=== PATIENT | female | born 1985 | race Caucasian/White ===

== ENCOUNTER 2024-09-28 13:00 | Outpatient (RCR) | payer MEDICAID, SELFPAY | END 2024-10-19 23:59 | disposition home or self-care (01) | LOC: SCTC 13:00 | PROVIDERS: PCP Physician Assistant Medical; Referring Provider Physician Assistant Medical; Visit Provider Nurse Practitioner Family | DX: D50.9 Iron deficiency anemia, unspecified (principal); F10.10 Alcohol abuse, uncomplicated; Z71.41 Alcohol abuse counseling and surveillance of alcoholic | CPT/HCPCS: 99213; G0463 ==

== ENCOUNTER 2024-11-06 18:50 | Emergency (ER) | payer MEDICAID, SELFPAY ==
[2024-11-06 18:51] VITALS: BMI 41.9
--- NOTE | 2024-11-06 19:09 | PC.NURSE ---
PT did not answer when name was called in the lobby and was not found outside.
[2024-11-06 19:10] VITALS: BP 138/95; PULSE 106; RESP 22; TEMP 36.8; O2SAT 100
--- NOTE | 2024-11-06 19:10 | XR_ITS ---
Examination: CTA chest with intravenous contrast 2-D reconstructions 3-D reconstructions, vascular Date and time of exam: November 06, 2024 at 9:44 PM Indications: Onset chest pain shortness of breath today CTDI: vol (mGy) 23.2 DLP: (mGycm) 2463 Technique: Multiple axial sections of the thorax have been obtained. 3 mm slice thickness, from below the hemidiaphragms to above the apices of the lungs. Mediastinal and lung density settings have been obtained. 2-D sagittal and coronal reconstructions. 3-D angiographic renderings, 3-D volume renderings, 3D post processing, vascular maximum intensity projections obtained. Contrast administered is 100 cc Isovue-370. Low dose protocols were performed. One or more of the following dose reduction techniques were used; automated exposure control, adjustment of the mA and/or KV according to patient size, use of iterative reconstruction technique. Findings: No thoracic aortic aneurysm dilatation or dissection No pulmonary artery filling defects No paratracheal tracheobronchial or bronchopulmonary adenopathy No pneumonia or pulmonary edema No liver or splenic lesion Absent gallbladder No pancreatic or adrenal mass Kidneys partially visualized no stenosis Impression: Negative for pulmonary artery emboli No pneumonia, pulmonary edema or pleural disease
--- NOTE | 2024-11-06 19:10 | XR_ITS ---
Examination: CT abdomen with intravenous contrast CT pelvis with intravenous contrast 2-D coronal reconstructions 2-D sagittal reconstructions Date and time of exam:November 06, 2024 at 1930 8:00 PM Indications: Onset abdominal pain today. CTDI: vol (mGy) 23.0 DLP: (mGycm) 2463 Technique: Multiple axial sections of the abdomen and pelvis have been obtained. 64 slice high-resolution scanner used. 3 mm axial sections have been obtained, post intravenous injection 100 cc Isovue-370 2-D sagittal, coronal reconstructions obtained. Low dose protocols were performed. One or more of the following dose reduction techniques were used; automated exposure control, adjustment of the mA and/or KV according to patient size, use of iterative reconstruction technique. Findings: No focal liver or splenic lesion Absent gallbladder No pancreatic mass 25 mm fat-containing umbilical hernia No renal or ureteral calculi, no hydronephrosis No pericecal inflammatory change No bowel obstruction or diverticulitis No pelvic mass Urinary bladder intact Impression: No renal or ureteral calculi, no hydronephrosis No CT findings of appendicitis bowel obstruction or diverticulitis
--- NOTE | 2024-11-06 19:10 | XR_ITS ---
Examination: AP chest single view Technique one AP portable upright chest single view Exam date and time: November 06, 2024 1937 hrs. Indications: Shortness of breath today Findings: Mild enlargement cardiac contour Mild vascular congestion. No lobar pulmonary edema Impression: Mild vascular congestion No lobar or pulmonary edema
--- NOTE | 2024-11-06 19:10 | PD.EDSOB ---
ED SOB =RME/HPI General Chief Complaint: Shortness of Breath/Dyspnea Stated Complaint: SOB, NOSE AND MOUTH DRY Time Seen by Provider: 11/06/24 19:04 Arrival date/time: 11/06/24 18:50 RME / HPI RME / HPI Narrative: This section includes all my notes and documentations, including HPI, PE, and ED course. Sarath Kelley MD HPI: 39 y/o female with Hx of Seizures, Asthma, Bronchitis, Pneumonia, Gall Bladder Disease, Gastroesophageal Reflux Disease, Obesity, Kidney Stones,?and Arthritis BIB mother presents to ED c/o sore throat and fever, vomiting, and diarrhea x 2 days. Patient also reports feeling SOB and LLQ pain. Patient passed out in the lobby for a few seconds. She was supposed to receive iron supplementation last week, but was told to come to ED for flu-like symptoms instead. Denies any possibility of . No other complaints. ROS: All negative except as documented in HPI. Physical Exam: General: Alert and oriented. No acute distress when remaining still. Eyes: Conjunctivae and lids clear. ENT: No nasal congestion. Neck: Supple. Heart: RRR. Lungs: No respiratory distress. Good air movement. No rhonchi, wheezing, rales. Abdomen: Soft and nontender. Normal bowel sounds. No distension. No rebound or guarding. Back: No CVA tenderness. Skin: Warm and dry. Neuro: Alert and oriented X 3. I reviewed all diagnostic test results. My interpretation of the EKG is My interpretation of the chest x-ray is Mild vascular congestion, No lobar or pulmonary edema noted. My review of the CT report is Blood tests and urine tests At this point, diagnoses include Hyperventilation-induced syncope and Allergic rhinitis. Treatment here included Zofran, Lorazepam, Toradol, Xanax, and Methylprednisolone. Significant improvement Based on my best medical judgment, made decision no further evaluation or treatment indicated at this time. Patient understands and agrees to the discharge instructions customized and printed, see below. Discharge instructions from Dr. Kelley: 1. After extensive evaluation, there is no life-threatening condition.? Such as stroke or brain tumor or heart attack or pulmonary embolism (blood clots in your lungs) or pneumothorax (collapsed lung). You passed out from hyperventilating. Try to take very deep breaths when you are feeling anxious. 2. Your hemoglobin was 9.8, meaning your body is making red blood cells. It takes 3 months to make red blood cells. 3. Take Xanax as needed.? Whether this helps or not will be valuable information to your private doctors. Take [id number] medications for your allergies. 4. See a private doctor on 11/09/24 for recheck. Ask to review all test results and official radiology reports, to make sure you receive all necessary follow-ups and monitoring. To make sure there is no serious underlying heart condition, ask to help you get more tests for your heart that cannot be done here in the ER.? Such as Holter Monitor (cardiac monitoring at home from a day to even a month), heart stress test (on treadmill or with medication), echocardiogram (imaging of your heart structures), heart catherization (checking for blockages in your heart arteries), and a referral to see a Hydraulic Rubbish Comp[employer] Mechanic. If needed, ask for help with MRI imaging of the brain and referral to see neurologist. 5. Seek immediate medical care with worsening or with any concerns.?? Sarath Kelley MD Related Data Home Medications ?Medication ?Instructions ?Recorded ?Confirmed fluoxetine 20 mg capsule (Prozac) 20 mg PO QDAY 03/02/24 03/03/24 omeprazole 40 mg capsule,delayed 40 mg PO QDAY 03/02/24 03/02/24 release Previous Rx's ?Medication ?Instructions ?Recorded docusate sodium 100 mg capsule 100 mg PO BID #40 caps 03/03/24 (Colace) hydrocodone 5 mg-acetaminophen 325 1 tab PO Q6H PRN pain (scale score 03/03/24 mg tablet 7-10) #20 tabs ibuprofen 600 mg tablet 600 mg PO Q8H PRN pain (scale 03/03/24 score 4-6) #15 tabs hydrocodone 5 mg-acetaminophen 325 1 tab PO BID PRN pain #14 tabs 03/10/24 mg tablet polyethylene glycol 3350 17 4 g PO QDAY PRN constipation #510 03/10/24 gram/dose oral powder (Miralax) grams prednisone 50 mg tablet 50 mg PO QDAY #7 tabs 03/27/24 alprazolam 0.5 mg tablet (Xanax) 0.5 mg PO BID PRN anxiety #20 tabs 11/06/24 Allergies Allergy/AdvReac Type Severity Reaction Status Date / Time amoxicillin Allergy Severe RASH AND Verified 11/06/24 18:54 VOMITING erythromycin base Allergy Severe Rash Verified 11/06/24 18:54 ketorolac Allergy Severe Palpitation Verified 11/06/24 18:54 s Penicillins Allergy Severe Rash Verified 11/06/24 18:54 Review of Systems Review of Systems Systems Reviewed: All systems reviewed, normal except as documented Narrative Review of Systems: Refer to HPI above. Past Medical History Past Medical History NEUROLOGIC: Positive Neurological Disorders and Seizures RESPIRATORY: Positive Asthma, Bronchitis and Pneumonia GASTROINTESTINAL: Positive Gastrointestinal Disorders, Gall Bladder Disease, Gastroesophageal Reflux Disease and Obesity GENITOURINARY: Positive Genitourinary Disorders and Kidney Stones REPRODUCTIVE: Positive Previous Pregnancies MUSCULOSKELETAL: Positive Musculoskeletal Disorders, Arthritis and Fractures HEMATOLOGIC: Positive Blood Disorders and Anemia PSYCHO/SOCIAL: Positive Depression and Anxiety OTHER HISTORY: Positive Hospitalization (surgery, medical), Falls and Chicken Pox Family History FAMILY HISTORY: Positive Family Cardiac Disorders and Family Surgery Surgical History SURGICAL: Positive Open Reduction Internal Fixation (anni ankle ORIF), Tubal Ligation and Section ED Exam Narrative Physical exam: Refer to HPI above. Course Quality Measures none Orders Category Date Time Status Bedside COVID-19 Antigen Test NOW Care 11/06/24 19:09 Active Bedside Influenza A&B Antigen Test NOW Care 11/06/24 19:[address] Screening NOW Care 11/06/24 19:10 Active EKG (ED ONLY) *Do not use* NOW Care 11/06/24 19:04 Completed Saline [Insert IV] NOW Care 11/06/24 19:09 Active Straight [In and Out Catheter] X1 Care 11/06/24 19:[address] abdomen pelvis w con Stat Exams 11/06/24 19:[address] angio chest Stat Exams 11/06/24 19:[address] head/brain wo con Stat Exams 11/06/24 19:11 Completed EKG (ED Only) Stat Exams 11/06/24 19:04 Ordered XR chest 1V portable Stat Exams 11/06/24 19:10 Completed ABG [Arterial Blood Gas] Stat Lab 11/06/24 19:45 Completed Amylase Stat Lab 11/06/24 19:15 Completed BNP [B-Type Natriuretic Peptide] Stat Lab 11/06/24 19:15 Completed Bilirubin,Direct Stat Lab 11/06/24 19:15 Completed CBC Stat Lab 11/06/24 19:15 Completed CMP [Comprehensive Metabolic Panel] Stat Lab 11/06/24 19:15 Completed D-Dimer Stat Lab 11/06/24 19:15 Completed Free T4 (Free Thyroxine) Stat Lab 11/06/24 19:15 Completed HCG Qualitative,Urine Stat Lab 11/06/24 19:20 Completed HCG,Qualitative Serum Stat Lab 11/06/24 19:15 Completed Lipase Stat Lab 11/06/24 19:15 Completed Magnesium Stat Lab 11/06/24 19:15 Completed PT [Prothrombin Time with INR] Stat Lab 11/06/24 19:15 Completed PTT [Partial Thromboplastin Time] Stat Lab 11/06/24 19:15 Completed RSV [Respiratory Syncytial Virus Ag] Stat Lab 11/06/24 19:20 Completed Strep A Rapid Stat Lab 11/06/24 19:20 Completed TSH [Thyroid Stimulating Hormone] Stat Lab 11/06/24 19:15 Completed Troponin I Stat Lab 11/06/24 19:15 Completed UA, C/S IF [Urinalysis, C/S if Indicated] Stat Lab 11/06/24 19:20 Completed ALPRazoLAM [Xanax] Med 11/06/24 22:56 Discontinued 1 mg PO X1 ONE Ketorolac Inj [Toradol Inj] Med 11/06/24 19:47 Discontinued 30 mg IVP X1 ONE LORazepam [Ativan Inj] Med 11/06/24 19:09 Discontinued 0.75 mg IVP X1 ONE MethylPREDNISolone.* [SoluMEDROL Inj] Med 11/06/24 22:56 Discontinued 125 mg IM X1 ONE Ondansetron Inj [Zofran Inj] Med 11/06/24 19:09 Discontinued 4 mg IV X1 ONE Vital Signs Vital signs: Vital Signs Temperature 98.3 F 11/06/24 19:10 Pulse Rate 106 H 11/06/24 19:10 Respiratory Rate 22 H 11/06/24 19:10 Blood Pressure 138/95 H 11/06/24 19:10 Pulse Oximetry (%) 100 11/06/24 19:10 Oxygen Delivery Method Room Air 11/06/24 19:10 Shortness of Breath / Dyspnea MDM Narrative MDM Narrative:: Scribe Attestation: I, Addis Quintanilla, am scribing for and in the presence of Dr. Kelley. Provider Notation: Although this document has been carefully reviewed, there may still be some phonetic and other typographical errors. These errors are purely grammatical due to imperfections in the software program and should not be construed in any way to compromise the substance of the patient's medical care during this visit. 39 y/o female with Hx of Seizures, Asthma, Bronchitis, Pneumonia, Gall Bladder Disease, Gastroesophageal Reflux Disease, Obesity, Kidney Stones,?and Arthritis BIB mother presents to ED c/o sore throat and fever, vomiting, and diarrhea x 2 days. Patient also reports feeling SOB and LLQ pain. Patient passed out in the lobby for a few seconds. Patient data External records reviewed:: [facility] previous records (Prior ED visit records reviewed from 03/27/24. Patient was seen for Shortness of breath.) Clinical information provided by:: patient and parent (Mother) Social determinants that could affect healthcare access:: none Patient has the following chronic illnesses:: Seizures, Asthma, Bronchitis, Pneumonia, Gall Bladder Disease, Gastroesophageal Reflux Disease and ObesityKidney Stones,?and Arthritis How is presenting disease/condition affected by chronic disease/condition?: exacerbated by Evaluation data The following diagnostics were reviewed and interpreted by me:: lab results, radiology exam(s) (Chest x-ray shows: Mild vascular congestion, No lobar or pulmonary edema noted.) and EKG tracing(s) (My interpretation of the EKG: Sinus tachycardia (107 bpm) with no ST-T changes. Sarath Kelley MD) Lab and/or radiology exams considered but not ordered:: None Interpretation Summary: Hyperventilation-induced syncope, Allergic rhinitis Medications / Prescriptions Medications or Prescriptions considered but not ordered:: None Medication administrations:: Medication Administration History Discontinued Medications Alprazolam (Alprazolam 0.25 Mg Tablet) 1 mg PO X1 ONE Stop: 11/06/24 22:57 Ketorolac Tromethamine (Ketorolac Inj 30 Mg/Ml Vial) 30 mg IVP X1 ONE Stop: 11/06/24 19:48 Last Admin: 11/06/24 20:18 Dose: Not Given Documented By: EE Non-Admin Reason: Allergy Lorazepam (Lorazepam 2 Mg/Ml Vial) 0.75 mg IVP X1 ONE Stop: 11/06/24 19:10 Last Admin: 11/06/24 19:36 Dose: 0.75 mg Documented By: EF Methylprednisolone Sodium Succinate (Methylprednisolone Sod Succ 62.5 Mg/Ml 2ml Vial) 125 mg IM X1 ONE Stop: 11/06/24 22:57 Ondansetron HCl (Ondansetron Inj 2 Mg/Ml Inj 2 Ml) 4 mg IV X1 ONE; Protocol Stop: 11/06/24 19:10 Last Admin: 11/06/24 19:36 Dose: 4 mg Documented By: EF Zofran, Lorazepam, Toradol, Xanax, Methylprednisolone Consultations Consultation(s) initiated? (list below): No Diagnosis Shortness of Breath Differential Diagnosis: asthma with exacerbation and other (Anxiety vs Hypothyroidism vs Generalized abdominal pain) Most likely diagnosis given after review of the tests above:: Hyperventilation-induced syncope, Allergic rhinitis Admission Indicated Admission indicated?: not indicated Explain why admission is indicated or not indicated:: With significant improvement, there was no indication for admission. Admission Request Was there a request for admission?: No Disposition Plan Disposition Plan: Discharge Discharge Attestation Discharge Attestation: The patient and all family members were given an opportunity to ask questions and understood the discharge instructions. Discharge instructions specifically effects, indications for sooner follow up or return to the emergency department, and the expected course of current diagnosis. Patient condition: Stable Discharge Plan Plan Patient Disposition: HOME (Self Care) Prescriptions/Referrals Prescriptions/Med Rec: New alprazolam [Xanax] 0.5 mg tablet 0.5 mg PO BID PRN (Reason: anxiety) Qty: 20 0RF No Action omeprazole 40 mg Capsule,Delayed Release(Dr/Ec) 40 mg PO QDAY fluoxetine [Prozac] 20 mg Capsule 20 mg PO QDAY docusate sodium [Colace] 100 mg capsule 100 mg PO BID Qty: 40 0RF hydrocodone-acetaminophen 5-325 mg tablet 1 tab PO Q6H MDD 4 PRN (Reason: pain (scale score 7-10)) Qty: 20 0RF ibuprofen 600 mg tablet 600 mg PO Q8H PRN (Reason: pain (scale score 4-6)) Qty: 15 0RF hydrocodone-acetaminophen 5-325 mg tablet 1 tab PO BID MDD qid PRN (Reason: pain) Qty: 14 0RF polyethylene glycol 3350 [Miralax] 17 gram/dose powder 4 g PO QDAY MDD 4g PRN (Reason: constipation) Qty: 510 0RF prednisone 50 mg tablet 50 mg PO QDAY Qty: 7 0RF Referrals: No Primary/Family,Physician [Primary Care Provider] - In 1 week Problem List Clinical Impression: Hyperventilation-induced syncope, Allergic rhinitis Patient/Caregiver Discharge Instructions Discharge Activity: activity as tolerated Education Materials: ED Allergic Rhinitis, ED Fainting, Uncertain Cause Additional Instructions: Discharge instructions from Dr. Kelley: 1. After extensive evaluation, there is no life-threatening condition.? Such as stroke or brain tumor or heart attack or pulmonary embolism (blood clots in your lungs) or pneumothorax (collapsed lung). You passed out from hyperventilating. Try to take very deep breaths when you are feeling anxious. 2. Your hemoglobin was 9.8, meaning your body is making red blood cells. It takes 3 months to make red blood cells. 3. Take Xanax as needed.? Whether this helps or not will be valuable information to your private doctors. Take [id number] medications for your allergies. 4. See a private doctor on 11/09/24 for recheck. Ask to review all test results and official radiology reports, to make sure you receive all necessary follow-ups and monitoring. To make sure there is no serious underlying heart condition, ask to help you get more tests for your heart that cannot be done here in the ER.? Such as Holter Monitor (cardiac monitoring at home from a day to even a month), heart stress test (on treadmill or with medication), echocardiogram (imaging of your heart structures), heart catherization (checking for blockages in your heart arteries), and a referral to see a Hydraulic Rubbish Compactor Mechanic. If needed, ask for help with MRI imaging of the brain and referral to see neurologist. 5. Seek immediate medical care with worsening or with any concerns.?? Print Language: American Stand Alone Forms: Janet Award Info., Patient Portal Info Letter
--- NOTE | 2024-11-06 19:11 | XR_ITS ---
Examination: CT brain head without contrast. 2-D sagittal coronal reconstructions Date and time of exam:November 06, 2024 2136 hrs. Indications: Syncopal episode today CTDI: vol (mGy):56.9 DLP: (mGycm):1383 Technique: Multiple CT axial sections of the brain have been obtained, 5 mm slice thickness. Contrast has not been administered. 2-D sagittal, coronal reconstructions have been obtained Low dose protocols were performed. One or more of the following dose reduction techniques were used; automated exposure control, adjustment of the mA and/or KV according to patient size, use of iterative reconstruction technique. Findings: No significant ventricular enlargement. Intra-axial or extra-axial hemorrhage density is not seen. No mass effect or midline shift Basal cisterns are not remarkable. Fourth ventricle is midline. Cranial vault intact. Impression: Negative for acute hemorrhage, mass effect or midline shift Advise clinical correlation follow-up accordingly
--- NOTE | 2024-11-06 19:11 | PC.NURSE ---
Pt was found. Was taken back into room [address] Kelley.
[2024-11-06 19:34] LABS: Collection Type, Urine Clean Catch; Squamous Epithelial Cell,Urine 0 /hpf (0-5)
[2024-11-06] MEDS: ONDANSETRON INJ 2 MG/ML INJ 2 ML 4 MG IV (19:36)
[2024-11-06] MEDS: LORazepam 2 MG/ML VIAL 0.75 MG IVP (19:36)
[2024-11-06 19:38] LABS: Basophils # (Auto) 0.1 Thou/mm3 (0.0-0.2); Basophils % (Auto) 1 % (0-2.5); Eosinophils # (Auto) 0.2 Thou/mm3 (0.0-0.5); Eosinophils % (Auto) 2 % (0-10); Hematocrit 33.7 % (36.0-46.0); Hemoglobin 9.8 g/dL (12.0-16.0); Immature Granulocytes % (Auto) 0 % (0-0); Immature Granulocytes Auto 0.05 Thou/mm3 (0.00-0.00); Lymphocytes # (Auto) 2.5 Thou/mm3 (1.0-4.8); Lymphocytes % (Auto) 19 % (10-50); Mean Corpuscular HGB Conc 29.1 g/dl (31.0-37.0); Mean Corpuscular Hemoglobin 21.5 pg (25.0-35.0); Mean Corpuscular Volume 74 fL (80-100); Monocytes # (Auto) 0.5 Thou/mm3 (0.0-0.8); Monocytes % (Auto) 4 % (0-12); Neutrophils # (Auto) 9.7 Thou/mm3 (1.8-7.7); Neutrophils % (Auto) 75 % (37-80); Nucleated Red Blood Cell % 0 /100 WBC (0); Platelet Count 455 Thou/mm3 (140-440); RDW Standard Deviation 52.1 fL (36.4-46.3); Red Blood Count 4.55 Miln/mm3 (4.00-5.20)
[2024-11-06 19:39] LABS: Bilirubin,Urine Negative (Negative); Blood,Urine Negative (Negative); Clarity,Urine Clear (Clear/Hazy); Color,Urine Colorless (Lt Yel-Yel); Culture Indicated,Urine Not Indicated; Glucose, Urine Negative (Negative); Ketones,Urine Negative (Negative); Leukocyte Esterase,Urine Negative (Negative); Nitrite,Urine Negative (Negative); PH,Urine 6.5 (5.0-7.0); Protein,Urine Negative (Neg - Trace); RBC,Urine 1 /hpf (0-3); Specific Gravity,Urine 1.004 (1.001-1.035); Urobilinogen,Urine Negative mg/dL (0.0-1.0); WBC,Urine < 1 /hpf (0-5)
[2024-11-06 19:52] LABS: Base Excess -3 (-3-3); HCO3 22 mEq/L (20-26); Inspired Oxygen, FIO2 97 %; O2 Saturation 95 % (91-98); PCO2 34 mmHg (32.0-48.0); PO2 74 mmHg (83-108); pH, Arterial 7.42 (7.35-7.45)
[2024-11-06 19:54] LABS: Allen Test Performed/OK; Puncture Site Right Radial
[2024-11-06 19:55] LABS: HCG,Qualitative Serum Negative
[2024-11-06 20:00] LABS: D-Dimer < 250 ng/mL (<600); INR 0.9 (0.9-1.3); Partial Thromboplastin Time 25.8 Seconds (22.0-36.0); Prothrombin Time 10.3 Seconds (9.0-12.2)
[2024-11-06 20:03] LABS: HCG Qualitative,Urine Negative
[2024-11-06 20:03] LABS: B-Type Natriuretic Peptide 34 pg/mL (0-100)
[2024-11-06 20:07] LABS: Respiratory Syncytial Virus Ag Negative (Negative); Strep A Rapid Negative (Negative)
[2024-11-06 20:24] LABS: Alanine Aminotransferase 25 U/L (10-49); Albumin, Serum 4.4 gm/dL (3.5-5.0); Albumin/Globulin Ratio 1.5 (1.2-2.2); Alkaline Phosphatase 103 U/L (46-116); Anion Gap 11 (7-16); Aspartate Amino Transferase 32 U/L (0-34); BUN/Creatinine Ratio 7 Ratio (12-20); Bilirubin,Direct 0.1 mg/dL (0.0-0.3); Bilirubin,Total 0.5 mg/dL (0.3-1.2); Blood Urea Nitrogen 5 mg/dL (9-23); Calcium 9.4 mg/dL (8.3-10.6); Calcium (Corrected) 9.4 mg/dL (8.5-10.1); Carbon Dioxide 24.6 mMol/L (20.0-31.0); Chloride 105 mMol/L (98-107); Creatinine (Component) 0.7 mg/dL (0.6-1.3); Estimated Creatinine Clearance 143.8 mL/min (>60); Free T4 (Free Thyroxine) 1.12 ng/dL (0.89-1.76); Glucose 99 mg/dL (74-106); Lipase 37 U/L (12-53); Magnesium 2.3 mg/dL (1.6-2.6); Osmolality,Calculated 278 (275-295); Potassium 3.5 mMol/L (3.4-5.1); Sodium 141 mMol/L (136-145); Thyroid Stimulating Hormone 1.88 uIU/mL (0.55-4.78); Total Protein 7.4 gm/dL (5.7-8.2); Troponin I < 0.002 ng/mL (0.0-0.045); eGFR > 60 See Note
[2024-11-06 20:36] LABS: Amylase 86 U/L (30-118)
[2024-11-06] MEDS: MethylPREDNISolone SOD SUCC 62.5 MG/ML 2ML VIAL 125 MG IM (23:09)
[2024-11-06] MEDS: ALPRazoLAM 0.25 MG TABLET 1 MG PO (23:10)
[2024-11-06 23:14] VITALS: BP 132/89; PULSE 97; RESP 18; TEMP 36.7; O2SAT 98
== END 2024-11-06 23:16 | disposition home or self-care (01) ==
PROVIDERS: Emergency Provider Emergency Medicine
DX: R55 Syncope and collapse (principal); R06.4 Hyperventilation; J45.909 Unspecified asthma, uncomplicated; K21.9 Gastro-esophageal reflux disease without esophagitis; M19.90 Unspecified osteoarthritis, unspecified site; R10.32 Left lower quadrant pain
CPT/HCPCS: 36415; 36600; 70450; 71045; 71275; 74177; 80053; 81001; 81025; 82150; 82248; 82803; 83690; 83735; 83880; 84439; 84443; 84484; 84703; 85025; 85379; 85610; 85730; 87400; 87634; 87651; 87811; 93005; 96372; 96374; 96375; 99285; A4649; J2060; J2405; J2919; Q9967; A9270

== ENCOUNTER 2024-11-18 13:56 | Outpatient (RCR) | payer MEDICAID, SELFPAY ==
[2024-10-27 09:02] LABS: Basophils % (Auto) 1 % (0-2.5); Eosinophils # (Auto) 0.1 Thou/mm3 (0.0-0.5); Eosinophils % (Auto) 2 % (0-10); Hematocrit 26.4 % (36.0-46.0); Immature Granulocytes % (Auto) 1 % (0-0); Immature Granulocytes Auto 0.04 Thou/mm3 (0.00-0.00); Lymphocytes # (Auto) 1.6 Thou/mm3 (1.0-4.8); Lymphocytes % (Auto) 19 % (10-50); Mean Corpuscular Hemoglobin 20.6 pg (25.0-35.0); Mean Corpuscular Volume 73 fL (80-100); Monocytes # (Auto) 0.3 Thou/mm3 (0.0-0.8); Monocytes % (Auto) 4 % (0-12); Neutrophils # (Auto) 6.1 Thou/mm3 (1.8-7.7); Neutrophils % (Auto) 74 % (37-80); Nucleated Red Blood Cell % 0 /100 WBC (0); Platelet Count 105 Thou/mm3 (140-440); White Blood Count 8.3 Thou/mm3 (3.6-11.0)
[2024-10-27 09:08] LABS: Hemoglobin 7.4 g/dL (12.0-16.0)
[2024-11-11 15:05] LABS: Basophils # (Auto) 0.1 Thou/mm3 (0.0-0.2); Basophils % (Auto) 1 % (0-2.5); Eosinophils # (Auto) 0.2 Thou/mm3 (0.0-0.5); Eosinophils % (Auto) 2 % (0-10); Hematocrit 31.3 % (36.0-46.0); Hemoglobin 9.1 g/dL (12.0-16.0); Immature Granulocytes % (Auto) 1 % (0-0); Immature Granulocytes Auto 0.08 Thou/mm3 (0.00-0.00); Lymphocytes # (Auto) 1.5 Thou/mm3 (1.0-4.8); Lymphocytes % (Auto) 13 % (10-50); Mean Corpuscular HGB Conc 29.1 g/dl (31.0-37.0); Mean Corpuscular Hemoglobin 22.1 pg (25.0-35.0); Mean Corpuscular Volume 76 fL (80-100); Monocytes # (Auto) 0.6 Thou/mm3 (0.0-0.8); Monocytes % (Auto) 5 % (0-12); Neutrophils % (Auto) 79 % (37-80); Nucleated Red Blood Cell # 0.02 Thou/mm3 (0.00-0.00); Nucleated Red Blood Cell % 0 /100 WBC (0); Platelet Count 336 Thou/mm3 (140-440); RDW Standard Deviation 55.8 fL (36.4-46.3); Red Blood Count 4.12 Miln/mm3 (4.00-5.20); White Blood Count 11.4 Thou/mm3 (3.6-11.0)
== END 2024-11-18 23:59 | disposition home or self-care (01) ==
LOC: SCTC 13:56
PROVIDERS: Internal Medicine Hematology & Oncology; PCP Physician Assistant Medical; Referring Provider Physician Assistant Medical; Visit Provider Nurse Practitioner Family
DX: D50.9 Iron deficiency anemia, unspecified (principal); N92.0 Excessive and frequent menstruation with regular cycle; F10.10 Alcohol abuse, uncomplicated
CPT/HCPCS: 36415; 36430; 85025; 86850; 86900; 86901; 86923; 96365; 96374; 96375; 99212; J1200; J1756; J2919; J3490; J7050; P9016; A9270; G0463

== ENCOUNTER 2024-12-10 14:01 | Outpatient (RCR) | payer MEDICAID, SELFPAY ==
[2024-12-03 14:54] LABS: Basophils # (Auto) 0.1 Thou/mm3 (0.0-0.2); Basophils % (Auto) 1 % (0-2.5); Eosinophils # (Auto) 0.1 Thou/mm3 (0.0-0.5); Eosinophils % (Auto) 1 % (0-10); Hematocrit 31.4 % (36.0-46.0); Hemoglobin 9.6 g/dL (12.0-16.0); Immature Granulocytes % (Auto) 0 % (0-0); Immature Granulocytes Auto 0.02 Thou/mm3 (0.00-0.00); Lymphocytes # (Auto) 1.5 Thou/mm3 (1.0-4.8); Lymphocytes % (Auto) 16 % (10-50); Mean Corpuscular HGB Conc 30.6 g/dl (31.0-37.0); Mean Corpuscular Hemoglobin 24.6 pg (25.0-35.0); Mean Corpuscular Volume 81 fL (80-100); Monocytes # (Auto) 0.5 Thou/mm3 (0.0-0.8); Monocytes % (Auto) 5 % (0-12); Neutrophils # (Auto) 7.2 Thou/mm3 (1.8-7.7); Neutrophils % (Auto) 77 % (37-80); Nucleated Red Blood Cell % 0 /100 WBC (0); Platelet Count 328 Thou/mm3 (140-440); RDW Standard Deviation 71.7 fL (36.4-46.3); White Blood Count 9.3 Thou/mm3 (3.6-11.0)
== END 2024-12-19 23:59 | disposition home or self-care (01) ==
LOC: SCTC 14:01
PROVIDERS: PCP Family Medicine; Referring Provider Nurse Practitioner Family; Visit Provider Nurse Practitioner Family
DX: D50.9 Iron deficiency anemia, unspecified (principal); N92.0 Excessive and frequent menstruation with regular cycle; F10.10 Alcohol abuse, uncomplicated
CPT/HCPCS: 36415; 85025; 96365; 96375; A4216; J1200; J1756; J2919; J3490; J7040; J7050; A9270

== ENCOUNTER 2025-01-12 13:59 | Outpatient (RCR) | payer MEDICAID, SELFPAY ==
[2024-12-31 15:42] LABS: Basophils % (Auto) 1 % (0-2.5); Eosinophils # (Auto) 0.2 Thou/mm3 (0.0-0.5); Eosinophils % (Auto) 2 % (0-10); Immature Granulocytes % (Auto) 0 % (0-0); Immature Granulocytes Auto 0.03 Thou/mm3 (0.00-0.00); Lymphocytes # (Auto) 1.2 Thou/mm3 (1.0-4.8); Lymphocytes % (Auto) 17 % (10-50); Mean Corpuscular HGB Conc 32.3 g/dl (31.0-37.0); Mean Corpuscular Volume 84 fL (80-100); Monocytes # (Auto) 0.3 Thou/mm3 (0.0-0.8); Monocytes % (Auto) 4 % (0-12); Neutrophils # (Auto) 5.4 Thou/mm3 (1.8-7.7); Neutrophils % (Auto) 76 % (37-80); Nucleated Red Blood Cell % 0 /100 WBC (0); Platelet Count 363 Thou/mm3 (140-440); Red Blood Count 3.71 Miln/mm3 (4.00-5.20); White Blood Count 7.1 Thou/mm3 (3.6-11.0)
[2024-12-31 16:09] LABS: Ferritin 15 ng/mL (7.3-270.7); Iron 32 mcg/dL (50-170); Percent Iron Saturation 8 % (20-55); Total Iron Binding Capacity 367 mcg/dL (250-425); Unsaturated Iron Binding 335 (225-295)
[2024-12-31 16:33] LABS: Alanine Aminotransferase 32 U/L (10-49); Albumin, Serum 4.2 gm/dL (3.5-5.0); Albumin/Globulin Ratio 1.8 (1.2-2.2); Alkaline Phosphatase 73 U/L (46-116); Anion Gap 8 (7-16); Aspartate Amino Transferase 41 U/L (0-34); BUN/Creatinine Ratio 7 Ratio (12-20); Bilirubin,Total 0.5 mg/dL (0.3-1.2); Blood Urea Nitrogen 5 mg/dL (9-23); Calcium 9.2 mg/dL (8.3-10.6); Calcium (Corrected) 9.2 mg/dL (8.5-10.1); Carbon Dioxide 27.8 mMol/L (20.0-31.0); Chloride 106 mMol/L (98-107); Creatinine (Component) 0.7 mg/dL (0.6-1.3); Globulin 2.3 gm/dL (2.3-3.5); Glucose 83 mg/dL (74-106); Osmolality,Calculated 279 (275-295); Potassium 3.5 mMol/L (3.4-5.1); Sodium 142 mMol/L (136-145); Total Protein 6.5 gm/dL (5.7-8.2); eGFR > 60 See Note
[2024-12-31 16:41] LABS: Folate > 24.00 ng/mL (>5.38); Vitamin B12 1053 pg/mL (211-911)
[2025-01-12 16:13] LABS: Basophils # (Auto) 0.1 Thou/mm3 (0.0-0.2); Basophils % (Auto) 1 % (0-2.5); Eosinophils # (Auto) 0.2 Thou/mm3 (0.0-0.5); Eosinophils % (Auto) 2 % (0-10); Hematocrit 35.9 % (36.0-46.0); Hemoglobin 11.5 g/dL (12.0-16.0); Immature Granulocytes % (Auto) 1 % (0-0); Immature Granulocytes Auto 0.05 Thou/mm3 (0.00-0.00); Lymphocytes # (Auto) 1.5 Thou/mm3 (1.0-4.8); Lymphocytes % (Auto) 14 % (10-50); Mean Corpuscular Hemoglobin 27.4 pg (25.0-35.0); Mean Corpuscular Volume 86 fL (80-100); Monocytes # (Auto) 0.4 Thou/mm3 (0.0-0.8); Monocytes % (Auto) 4 % (0-12); Neutrophils # (Auto) 8.5 Thou/mm3 (1.8-7.7); Neutrophils % (Auto) 80 % (37-80); Nucleated Red Blood Cell % 0 /100 WBC (0); Platelet Count 399 Thou/mm3 (140-440); RDW Standard Deviation 54.5 fL (36.4-46.3); White Blood Count 10.6 Thou/mm3 (3.6-11.0)
[2025-01-12 16:46] LABS: Alanine Aminotransferase 25 U/L (10-49); Albumin, Serum 4.5 gm/dL (3.5-5.0); Albumin/Globulin Ratio 1.8 (1.2-2.2); Alkaline Phosphatase 69 U/L (46-116); Anion Gap 11 (7-16); Aspartate Amino Transferase 30 U/L (0-34); BUN/Creatinine Ratio 9 Ratio (12-20); Bilirubin,Total 0.2 mg/dL (0.3-1.2); Blood Urea Nitrogen 7 mg/dL (9-23); Calcium 9.4 mg/dL (8.3-10.6); Calcium (Corrected) 9.4 mg/dL (8.5-10.1); Carbon Dioxide 26.3 mMol/L (20.0-31.0); Chloride 104 mMol/L (98-107); Creatinine (Component) 0.8 mg/dL (0.6-1.3); Globulin 2.5 gm/dL (2.3-3.5); Glucose 95 mg/dL (74-106); Osmolality,Calculated 279 (275-295); Potassium 3.6 mMol/L (3.4-5.1); Sodium 141 mMol/L (136-145); eGFR > 60 See Note
[2025-01-12 17:21] LABS: Hepatitis A Antibody IgM Non Reactive (Non React); Hepatitis B Core Antibody IgM Non Reactive (Non React); Hepatitis B Surface Antigen Non Reactive (Non React); Hepatitis C Antibody Non Reactive (Non React)
== END 2025-01-18 23:59 | disposition home or self-care (01) ==
LOC: SCTC 13:59
PROVIDERS: PCP Family Medicine; Referring Provider Family Medicine; Visit Provider Nurse Practitioner Family
DX: D50.9 Iron deficiency anemia, unspecified (principal); N92.0 Excessive and frequent menstruation with regular cycle; F10.10 Alcohol abuse, uncomplicated; F12.10 Cannabis abuse, uncomplicated
CPT/HCPCS: 36415; 80053; 80074; 82607; 82728; 82746; 83540; 83550; 85025; 96365; 96375; J1200; J1756; J2919; J3490; J7040; J7050; A9270

== ENCOUNTER 2025-02-11 14:00 | Outpatient (RCR) | payer MEDICAID, SELFPAY | END 2025-02-18 23:59 | disposition home or self-care (01) | LOC: SCTC 14:00 | PROVIDERS: PCP Family Medicine; Referring Provider Family Medicine; Visit Provider Nurse Practitioner Family | DX: D50.9 Iron deficiency anemia, unspecified (principal); N92.0 Excessive and frequent menstruation with regular cycle; F10.10 Alcohol abuse, uncomplicated; R19.5 Other fecal abnormalities | CPT/HCPCS: 96365; 96375; A4216; J1200; J1756; J2919; J3490; J7040; J7050; A9270 ==

== ENCOUNTER 2025-05-09 14:39 | Emergency (ER) | payer MEDICAID, SELFPAY ==
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
--- NOTE | 2025-05-09 15:02 | PC.NURSE ---
pd in room with pt
[2025-05-09 15:03] VITALS: BP 141/86; PULSE 122; RESP 16; TEMP 36.9; O2SAT 96
[2025-05-09 15:07] VITALS: BMI 42.2
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
--- NOTE | 2025-05-09 15:22 | XR_ITS ---
Examination: CT brain head without contrast. 2-D sagittal coronal reconstructions Date and time of exam: May 09, 2025, 1530 hours INDICATIONS: Ground-level fall today with injury to the head, head pain and dizziness CTDI: vol (mGy): 68 DLP: (mGycm): 1398 Technique: Multiple CT axial sections of the brain have been obtained, 5 mm slice thickness. Contrast has not been administered. 2-D sagittal, coronal reconstructions have been obtained Low dose protocols were performed. One or more of the following dose reduction techniques were used; automated exposure control, adjustment of the mA and/or KV according to patient size, use of iterative reconstruction technique. Findings: No significant ventricular enlargement. Intra-axial or extra-axial hemorrhage density is not seen. No mass effect or midline shift Basal cisterns are not remarkable. Fourth ventricle is midline. Cranial vault intact. Impression: Negative for acute hemorrhage, mass effect or midline shift Chronic bilateral mastoiditis Acute bilateral mastoiditis Left otitis externa
[2025-05-09 16:14] LABS: HCG,Qualitative Serum Negative
--- NOTE | 2025-05-09 16:22 | PC.NURSE ---
SCIENTIFIC INVESTIGATOR HERE TO TALK WITH PT
[2025-05-09 17:00] VITALS: BP 128/78; PULSE 86; RESP 16; TEMP 37; O2SAT 100
[2025-05-09] MEDS: LIDOCAINE HCL 1% 20 ML VIAL 10 ML INFL (17:01)
[2025-05-09] MEDS: HYDROcodone/APAP 5/325 TABLET 1 TAB PO (17:01)
== END 2025-05-09 17:52 | disposition home or self-care (01) ==
PROVIDERS: Emergency Provider Emergency Medicine; PCP Family Medicine
DX: S31.119A Laceration without foreign body of abdominal wall, unspecified quadrant without penetration into peritoneal cavity, initial encounter (principal); F41.9 Anxiety disorder, unspecified; H60.92 Unspecified otitis externa, left ear; H70.003 Acute mastoiditis without complications, bilateral; H70.13 Chronic mastoiditis, bilateral; S00.93XA Contusion of unspecified part of head, initial encounter; W18.30XA Fall on same level, unspecified, initial encounter
CPT/HCPCS: 12001; 36415; 70450; 74177; 84703; 99283; A4649; J3490; Q9967; A9270

== ENCOUNTER 2025-06-15 11:18 | Emergency (ER) | payer MEDICAID, SELFPAY ==
--- NOTE | 2025-06-15 12:09 | EDNOTE_ITS ---
ED Ear RME/HPI General Chief complaint: Ear Stated complaint: LEFT EAR INFECTION Time Seen by Provider: 06/15/25 11:38 Source: patient Arrival date/time: 06/15/25 11:18 40-year-old female with no known medical history presents to the emergency room with a chief complaint of left ear tenderness and difficulty hearing x 1 week. Mode of arrival: ambulatory Limitations: no limitations Related Data Home Medications ?Medication ?Instructions ?Recorded ?Confirmed fluoxetine 20 mg capsule (Prozac) 20 mg PO QDAY 03/03/24 omeprazole 40 mg capsule,delayed 40 mg PO QDAY 4 03/02/24 release Previous Rx's ?Medication ?Instructions ?Recorded docusate sodium 100 mg capsule 100 mg PO BID #40 caps 03/03/24 (Colace) hydrocodone 5 mg-acetaminophen 325 1 tab PO Q6H PRN pa in (scale score 03/03/24 mg tablet 7-10) #20 tabs ibuprofen 600 mg tablet 600 mg PO Q8H PRN pain (scal e 03/03/24 score 4-6) #15 tabs hydrocodone 5 mg-acetaminophen 325 1 tab PO BID PRN pa in #14 tabs 03/10/24 mg tablet polyethylene glycol 3350 17 4 g PO QDAY PRN constipati on #510 03/10/24 gram/dose oral powder (Miralax) grams prednisone 50 mg tablet 50 mg PO QDAY #7 tabs alprazolam 0.5 mg tablet (Xanax) 0.5 mg PO BID PRN anx iety #20 tabs 11/06/24 amoxicillin 875 mg-potassium 1 tab PO BID 7 days #14 t abs 06/15/25 clavulanate 125 mg tablet Allergies Allergy/AdvReac Type Severity Reaction Status Date / Time erythromycin base Allergy Severe Rash Verified 05/09/25 14:42 ketorolac Allergy Severe Palpitation Verified 05/09/25 14:42 s Penicillins Allergy Severe Rash Verified 05/09/25 14:42 Review of Systems Review of Systems Systems Reviewed: All systems reviewed, normal except as documented Constitutional Constitutional: Reports system reviewed and no additional complaints, except as documented, Denies fatigue, Denies fever(s), Denies headache(s) and Denies weakness Eyes Eyes: Reports system reviewed and no additional complaints, except as documented, Denies blurry vision and Denies change in vision ENT Ears, Nose, Mouth, and Throat: Reports system reviewed and no additional complaints, except as documented, Reports ear discharge, Reports otalgia, Denies headache(s), Denies nasal congestion, Denies throat swelling and Denies vertigo Cardiovascular Cardiovascular: Reports system reviewed and no additional complaints, except as documented, Denies chest pain, Denies dyspnea and Denies dyspnea on exertion Respiratory Respiratory: Reports system reviewed and no additional complaints, except as documented, Denies chest congestion, Denies cough, Denies dyspnea, Denies dyspnea on exertion and Denies wheezing Gastrointestinal Gastrointestinal: Reports system reviewed and no additional complaints, except as documented, Denies abdominal pain, Denies cramping, Denies nausea and Denies vomiting Genitourinary Genitourinary: Reports system reviewed and no additional complaints, except as documented Musculoskeletal Musculoskeletal: Reports system reviewed and no additional complaints, except as documented and Denies back pain Integumentary/Breasts Skin/Breast: Reports system reviewed and no additional complaints, except as documented and Denies wounds Neurologic Neurologic: Reports system reviewed and no additional complaints, except as documented, Denies confusion, Denies headache(s), Denies lack of coordination, Denies vertigo and Denies weakness Psychiatric Psychiatric: Reports system reviewed and no additional complaints, except as documented, Denies anxiety, Denies confusion, Denies depression, Denies paranoia, Denies suicidal ideation and Denies tactile hallucinations Endocrine Endocrine: Reports system reviewed and no additional complaints, except as documented and Denies fatigue Hematologic/Lymphatic Hematologic/Lymphatic: Reports system reviewed and no additional complaints, except as documented and Denies lymphadenopathy Allergic/Immunologic Allergic/Immunologic: Reports system reviewed and no additional complaints, except as documented, Denies throat swelling, Denies urticaria and Denies wheezing Past Medical History Past Medical History NEUROLOGIC: Positive Neurological Disorders and Seizures CARDIAC: Negative Cardiac Disorders or Congestive Heart Failure RESPIRATORY: Positive Bronchitis and Pneumonia; Negative Chronic Obstructive Pulmonary Disease (COPD) or Asthma GASTROINTESTINAL: Positive Gastrointestinal Disorders, Gall Bladder Disease, Gastroesophageal Reflux Disease and Obesity GENITOURINARY: Positive Genitourinary Disorders and Kidney Stones; Negative Renal Disease REPRODUCTIVE: Positive Previous Pregnancies MUSCULOSKELETAL: Positive Musculoskeletal Disorders, Arthritis and Fractures ENDOCRINE: Negative Endocrine Disorders, Diabetes Mellitus Type 1 or Diabetes Mellitus Type 2 HEMATOLOGIC: Positive Blood Disorders and Anemia; Negative Sickle Cell Disease PSYCHO/SOCIAL: Positive Depression and Anxiety OTHER HISTORY: Positive Hospitalization, Falls and Chicken Pox; Negative Autoimmune Disease, Shingles, Blood Transfusions, Blood Transfusion Reaction, Anesthesia Reactions or Cancer Family History FAMILY HISTORY: Positive Family Cardiac Disorders and Family Surgery; Negative Family Psychiatric Problems, Family Respiratory Disorders, Family Gastrointestinal Problems, Family Cancer or Family Anesthesia Reaction Surgical History SURGICAL: Positive Open Reduction Internal Fixation, Tubal Ligation and Section; Negative Hysterectomy Social History SMOKING STATUS: Former smoker SECOND HAND EXPOSURE: No (occassional smoking) SUBSTANCE USE: marijuana and opiates ED Exam General Limitations: Present no limitations General appearance: Present alert and in no apparent distress Head Head exam: Present atraumatic Eye Eye exam: Present normal appearance, PERRL and EOMI ENT ENT exam: Present normal exam, normal oropharynx and mucous membranes moist Expanded ENT Exam External ear exam: Present external tenderness TM/Canal exam: Left TM: erythema, bulging, effusion and canal tenderness Neck Neck exam: Present normal inspection, full ROM and trachea midline Chest Chest inspection: Present normal inspection and symmetric chest wall rise Respiratory Respiratory exam: Present normal lung sounds bilaterally Cardiovascular Cardiovascular exam: Present regular rate, normal rhythm and normal heart sounds Abdominal Exam Abdominal exam: Present soft and normal bowel sounds Extremities Exam Extremities exam: Present normal inspection and full ROM Back Exam Back exam: Present normal inspection and full ROM Neurological Exam Neurological exam: Present alert, oriented X3 and CN II-XII intact Psychiatric Psychiatric exam: Present normal affect and normal mood Skin Skin exam: Present warm, dry, intact and normal color Course Quality Measures none Orders Category Date Time Status ED Ear Irrigation X1 Care 06/15/25 12:09 Active cefTRIAXone [Rocephin] 1,000 mg Med 06/15/25 12:23 Discontinued Lidocaine 1% Pf 5 ml [Xylocaine 1% Pf 5 ml] 2.1 ml IM X1 Vital Signs Vital signs: Vital Signs Temperature 98.2 F 06/15/25 12:17 Pulse Rate 85 06/15/25 12:17 Respiratory Rate 18 06/15/25 12:17 Blood Pressure 123/76 06/15/25 12:17 Pulse Oximetry (%) 97 06/15/25 12:17 Oxygen Delivery Method Room Air 06/15/25 12:17 Ear MDM Narrative MDM Narrative:: 40-year-old female with no known medical history presents to the emergency room with a chief complaint of left ear tenderness and difficulty hearing x 1 week. Patient is hemodynamically stable and in no apparent distress Physical examination shows the left ear canal obstructed with cerumen. An irrigation was completed and after I was able to visualize the tympanic membrane which is erythemic and bulging. Antibiotics are sent to the patient's pharmacy a shot of Rocephin was given here and the patient was educated to keep taking her ofloxacin eardrops Patient was discharged and educated to follow-up with primary care provider in the next 24 to 48 hours and return to the emergency room for any evidence of worsening signs or symptoms Patient data External records reviewed:: [facility] previous records Clinical information provided by:: patient Social determinants that could affect healthcare access:: none Patient has the following chronic illnesses:: No chronic illness How is presenting disease/condition affected by chronic disease/condition?: no chronic disease Evaluation data The following diagnostics were reviewed and interpreted by me:: lab results and radiology exam(s) Lab and/or radiology exams considered but not ordered:: Labs radiology exams considered and ordered Interpretation Summary: N/A Medications / Prescriptions Medications or Prescriptions considered but not ordered:: Medication given Medication administrations:: Medication Administration History Discontinued Medications Ceftriaxone Sodium 1,000 mg/ (Lidocaine HCl 2.1 ml) 0 mg IM X1 ONE Stop: 06/15/25 12:24 Last Admin: 06/15/25 12:38 Dose: 1,000 mg Documented By: OA Medication given Consultations Consultation(s) initiated? (list below): No Diagnosis Ear Differential Diagnosis: otitis externa, otitis media and ruptured TM Most likely diagnosis given after review of the tests above:: Otitis media Admission Indicated Admission indicated?: not indicated Admission Request Was there a request for admission?: No Disposition Plan Disposition Plan: Discharge Discharge Attestation Discharge Attestation: The patient and all family members were given an opportunity to ask questions and understood the discharge instructions. Discharge instructions specifically effects, indications for sooner follow up or return to the emergency department, and the expected course of current diagnosis. Patient condition: Stable Discharge Plan Plan Patient Disposition: HOME (Self Care) Discharge Disposition comment: Stable Prescriptions/Referrals Prescriptions/Med Rec: New amoxicillin-pot clavulanate 875-125 mg tablet 1 tab PO BID 7 Days Qty: 14 0RF No Action omeprazole 40 mg Capsule,Delayed Release(Dr/Ec) 40 mg PO QDAY fluoxetine [Prozac] 20 mg Capsule 20 mg PO QDAY docusate sodium [Colace] 100 mg capsule 100 mg PO BID Qty: 40 0RF hydrocodone-acetaminophen 5-325 mg tablet 1 tab PO Q6H MDD 4 PRN (Reason: pain (scale score 7-10)) Qty: 20 0RF ibuprofen 600 mg tablet 600 mg PO Q8H PRN (Reason: pain (scale score 4-6)) Qty: 15 0RF hydrocodone-acetaminophen 5-325 mg tablet 1 tab PO BID MDD qid PRN (Reason: pain) Qty: 14 0RF polyethylene glycol 3350 [Miralax] 17 gram/dose powder 4 g PO QDAY MDD 4g PRN (Reason: constipation) Qty: 510 0RF prednisone 50 mg tablet 50 mg PO QDAY Qty: 7 0RF alprazolam [Xanax] 0.5 mg tablet 0.5 mg PO BID PRN (Reason: anxiety) Qty: 20 0RF Problem List Clinical Impression: Otitis media Patient/Caregiver Discharge Instructions Education Materials: ED Otitis Media Antibiotic ... Additional Instructions: Please follow-up with your primary care provider in the next 24 to 48 hours Antibiotics are sent to your pharmacy please pick them up and take them as indicated For any evidence of worsening signs or symptoms return the emergency room immediately Print Language: Korean Stand Alone Forms: Janet Award Info., Work/School Release, Patient Portal Info Letter PA/SENIOR ENTERPRISE ARCHITECT Supervising Physician PA/SENIOR ENTERPRISE ARCHITECT Supervising Physician: Dr. Wells
[2025-06-15 12:17] VITALS: BP 123/76; PULSE 85; RESP 18; TEMP 36.8; O2SAT 97; BMI 43.8
== END 2025-06-15 13:22 | disposition home or self-care (01) ==
LOC: SERX 12:27
PROVIDERS: Emergency Provider Nurse Practitioner Family; PCP Internal Medicine
DX: H66.92 Otitis media, unspecified, left ear (principal); Z87.891 Personal history of nicotine dependence
CPT/HCPCS: 96372; 99282; J0696; J3490

== ENCOUNTER 2025-07-21 18:05 | Emergency (ER) | payer MEDICAID, SELFPAY ==
[2025-07-21 18:06] VITALS: BMI 43.2
[2025-07-21 18:31] VITALS: BP 122/78; PULSE 98; RESP 18; TEMP 36.8; O2SAT 98
--- NOTE | 2025-07-21 19:11 | XR_ITS ---
Examination: Abdomen AP single view Technique: AP portable supine abdomen, single view Exam date and time: July 21, 2025, 2103 hours INDICATIONS: Rectal bleeding today. FINDINGS: Nonobstructive bowel gas pattern Surgical clips upper right abdomen No free air. Intact osseous structures IMPRESSION: Nonobstructive bowel gas pattern
--- NOTE | 2025-07-21 19:11 | EDRME_ITS ---
Rapid Medical Screening Exam [facility] Arrival date/time: 07/21/25 18:05 40F with history of psych, cholecystectomy, and multiple ovarian cyst surgeries (patient only has 1 ovary left) presents to ED with several weeks of worsening constipation. Yesterday, patient's started having some dizziness and N/V, as well as rectal bleeding. Patient has tried different oral and rectal treatments w/o relief. Chief Complaint: Abdominal Pain Vital signs: Vital Signs Temperature 98.2 F 07/21/25 18:31 Pulse Rate 98 07/21/25 18:31 Respiratory Rate 18 07/21/25 18:31 Blood Pressure 122/78 07/21/25 18:31 Pulse Oximetry (%) 98 07/21/25 18:31 Oxygen Delivery Method Room Air 07/21/25 18:31 Exam: Hard lower ab with some tenderness. Clinical Impression: Constipation vs SBO vs appy vs ab pain vs electrolyte abnormality
[2025-07-21] MEDS: ONDANSETRON ODT 4 MG TABRAP PO (19:37)
[2025-07-21] MEDS: MAGNESIUM CITRATE 300 ML BTL PO (19:37)
[2025-07-21 20:41] LABS: Collection Type, Urine Clean Catch
[2025-07-21 20:47] LABS: Bilirubin,Urine Negative (Negative); Blood,Urine Negative (Negative); Clarity,Urine Clear (Clear/Hazy); Color,Urine Colorless (Lt Yel-Yel); Culture Indicated,Urine Not Indicated; Glucose, Urine Negative (Negative); Ketones,Urine Negative (Negative); Leukocyte Esterase,Urine Negative (Negative); Nitrite,Urine Negative (Negative); PH,Urine 6.0 (5.0-7.0); Protein,Urine Negative (Neg - Trace); Specific Gravity,Urine 1.005 (1.001-1.035); Urobilinogen,Urine Negative mg/dL (0.0-1.0)
[2025-07-21 20:56] LABS: RBC,Urine 2 /hpf (0-3); Squamous Epithelial Cell,Urine 1 /hpf (0-5); WBC,Urine 3 /hpf (0-5)
[2025-07-21 20:58] LABS: HCG Qualitative,Urine Negative
--- NOTE | 2025-07-21 21:54 | EDNOTE_ITS ---
ED Abdominal Pain RME/HPI General Chief Complaint: Abdominal Pain Stated complaint: RECTAL BLEED WITH CONSTIPATION X1WK Time seen by provider: 07/21/25 19:13 Arrival date/time: 07/21/25 18:05 RME / HPI RME / HPI narrative: 07/21/25 18:05 40F with history of psych, cholecystectomy, and multiple ovarian cyst surgeries (patient only has 1 ovary left) presents to ED with several weeks of worsening constipation. Yesterday, patient's started having some dizziness and N/V, as well as rectal bleeding. Patient has tried different oral and rectal treatments w/o relief. Dr. Lo?s Main ED Evaluation: 40yo female presents to the ED for a chief complaint of constipation x 3 weeks. Patient is concerned due to being unable to pass a regular bowel movement. Patient started noticing some rectal bleeding yesterday. She is on Zepbound. Patient denies any vomiting, fever, chills, or any other associated symptoms. Related Data Home Medications ?Medication ?Instructions ?Recorded ?Confirmed fluoxetine 20 mg capsule (Prozac) 20 mg PO QDAY 03/03/24 omeprazole 40 mg capsule,delayed 40 mg PO QDAY 4 03/02/24 release Previous Rx's ?Medication ?Instructions ?Recorded docusate sodium 100 mg capsule 100 mg PO BID #40 caps 03/03/24 (Colace) hydrocodone 5 mg-acetaminophen 325 1 tab PO Q6H PRN pa in (scale score 03/03/24 mg tablet 7-10) #20 tabs ibuprofen 600 mg tablet 600 mg PO Q8H PRN pain (scal e 03/03/24 score 4-6) #15 tabs hydrocodone 5 mg-acetaminophen 325 1 tab PO BID PRN pa in #14 tabs 03/10/24 mg tablet polyethylene glycol 3350 17 4 g PO QDAY PRN constipati on #510 03/10/24 gram/dose oral powder (Miralax) grams prednisone 50 mg tablet 50 mg PO QDAY #7 tabs alprazolam 0.5 mg tablet (Xanax) 0.5 mg PO BID PRN anx iety #20 tabs 11/06/24 peg 3350-electrolytes 236 240 ml PO Q10M #4,000 mL gram-22.74 gram-6.74 gram-5.86 gram solution (Golytely) Allergies Allergy/AdvReac Type Severity Reaction Status Date / Time erythromycin base Allergy Severe Rash Verified 07/21/25 18:09 ketorolac Allergy Severe Palpitation Verified 07/21/25 18:09 s Penicillins Allergy Severe Rash Verified 07/21/25 18:09 Review of Systems Review of Systems Systems Reviewed: All systems reviewed, normal except as documented Past Medical History Past Medical History NEUROLOGIC: Positive Neurological Disorders and Seizures CARDIAC: Negative Cardiac Disorders or Congestive Heart Failure RESPIRATORY: Positive Bronchitis and Pneumonia; Negative Chronic Obstructive Pulmonary Disease (COPD) or Asthma GASTROINTESTINAL: Positive Gastrointestinal Disorders, Gall Bladder Disease, Gastroesophageal Reflux Disease and Obesity GENITOURINARY: Positive Genitourinary Disorders and Kidney Stones; Negative Renal Disease REPRODUCTIVE: Positive Previous Pregnancies MUSCULOSKELETAL: Positive Musculoskeletal Disorders, Arthritis and Fractures ENDOCRINE: Negative Endocrine Disorders, Diabetes Mellitus Type 1 or Diabetes Mellitus Type 2 HEMATOLOGIC: Positive Blood Disorders and Anemia; Negative Sickle Cell Disease PSYCHO/SOCIAL: Positive Depression and Anxiety OTHER HISTORY: Positive Hospitalization, Falls and Chicken Pox; Negative Autoimmune Disease, Shingles, Blood Transfusions, Blood Transfusion Reaction, Anesthesia Reactions or Cancer Family History FAMILY HISTORY: Positive Family Cardiac Disorders and Family Surgery; Negative Family Psychiatric Problems, Family Respiratory Disorders, Family Gastrointestinal Problems, Family Cancer or Family Anesthesia Reaction Surgical History SURGICAL: Positive Open Reduction Internal Fixation, Tubal Ligation and Section; Negative Hysterectomy Social History SMOKING STATUS: Former smoker SECOND HAND EXPOSURE: No (occassional smoking) SUBSTANCE USE: marijuana and opiates ED Exam Narrative Physical exam: Generally patient is alert no obvious distress, heart regular rate and rhythm, lungs clear to auscultation equal laterally, abdomen is obese bowel sounds could not be heard due to body habitus and nontender Course Quality Measures none Orders Category Date Time Status XR abdomen 1V Stat Exams 07/21/25 19:11 Completed HCG Qualitative,Urine Stat Lab 07/21/25 20:20 Completed Urinalysis, C/S if Indicated Stat Lab 07/21/25 20:20 Completed Magnesium Citrate Liqd [Citrate of Magnesia Liqd] Med 07/21/25 19:10 Discontinued 300 ml PO X1 ONE Ondansetron Odt [Zofran Odt] Med 07/21/25 19:10 Discontinued 4 mg PO X1 ONE Vital Signs Vital signs: Vital Signs Temperature 98.2 F 07/21/25 18:31 Pulse Rate 98 07/21/25 18:31 Respiratory Rate 18 07/21/25 18:31 Blood Pressure 122/78 07/21/25 18:31 Pulse Oximetry (%) 98 07/21/25 18:31 Oxygen Delivery Method Room Air 07/21/25 18:31 Abdominal Pain MDM MDM Narrative MDM Narrative:: Scribe Attestation: 07/21/25 - Ada Baker am scribing for and in the presence of Dr. Lo. KUB was unremarkable. Patient takes Zepbound. I believe that is causing intestinal issues. Patient will be given a prescription for GoLytely. Follow- up with her doctor. Return as needed. Patient has not been vomiting. I do not believe this patient have a bowel obstruction. Patient data External records reviewed:: [facility] previous records (Per chart review, patient was seen here on 06/15/25 for otitis media.) Clinical information provided by:: patient Social determinants that could affect healthcare access:: none Patient has the following chronic illnesses:: seizures, arthritis, anemia How is presenting disease/condition affected by chronic disease/condition?: uneffected by Evaluation data The following diagnostics were reviewed and interpreted by me:: lab results and radiology exam(s) Lab and/or radiology exams considered but not ordered:: none Interpretation Summary: [facility] Report Signed Patient: ZACH DINERO Record#: [id number] Birthdate: 1985 Age/Sex: 40 / F Location: [facility] Attending Dr: Ordering Physician: Wilfred Argueta PA-C Date of Service: 07/21/25 Procedure(s): XR abdomen 1V Accession Number(s): [id number] cc: Bella Lorenzo OD; Memo Mendoza MD; Wilfred Argueta PA-C~ Examination: Abdomen AP single view Technique: AP portable supine abdomen, single view Exam date and time: July 21, 2025, 2104 hours INDICATIONS: Rectal bleeding today. FINDINGS: Nonobstructive bowel gas pattern Surgical clips upper right abdomen No free air. Intact osseous structures IMPRESSION: Nonobstructive bowel gas pattern Dictated By: Memo Mendoza MD Signed By: <Electronically signed by Memo Mendoza MD in OV> 07/21/25 0594 Medications / Prescriptions Medications or Prescriptions considered but not ordered:: none Medication administrations:: Medication Administration History Discontinued Medications Magnesium Citrate (Magnesium Citrate 300 Ml Btl) 300 ml PO X1 ONE Stop: 07/21/25 19:11 Last Admin: 07/21/25 19:37 Dose: 300 ml Documented By: OA Comments: unable to scan Ondansetron HCl (Ondansetron Odt 4 Mg Tabrap) 4 mg PO X1 ONE; Protocol Stop: 07/21/25 19:11 Last Admin: 07/21/25 19:37 Dose: 4 mg Documented By: OA see above Consultations Consultation(s) initiated? (list below): No Diagnosis Differential diagnosis abdominal pain: other (See MDM) Most likely diagnosis given after review of the tests above:: see clinical impression below Admission Indicated Admission indicated?: not indicated Admission Request Was there a request for admission?: No Disposition Plan Disposition Plan: Discharge Discharge Attestation Discharge Attestation: The patient and all family members were given an opportunity to ask questions and understood the discharge instructions. Discharge instructions specifically effects, indications for sooner follow up or return to the emergency department, and the expected course of current diagnosis. Patient condition: Stable Discharge Plan Plan Patient Disposition: HOME (Self Care) Prescriptions/Referrals Prescriptions/Med Rec: New peg 3350-electrolytes [Golytely] 236-22.74-6.74 -5.86 gram recon soln 240 ml PO Q10M Qty: 4000 0RF Rx Instructions: until fecal effluent is clear No Action omeprazole 40 mg Capsule,Delayed Release(Dr/Ec) 40 mg PO QDAY fluoxetine [Prozac] 20 mg Capsule 20 mg PO QDAY docusate sodium [Colace] 100 mg capsule 100 mg PO BID Qty: 40 0RF hydrocodone-acetaminophen 5-325 mg tablet 1 tab PO Q6H MDD 4 PRN (Reason: pain (scale score 7-10)) Qty: 20 0RF ibuprofen 600 mg tablet 600 mg PO Q8H PRN (Reason: pain (scale score 4-6)) Qty: 15 0RF hydrocodone-acetaminophen 5-325 mg tablet 1 tab PO BID MDD qid PRN (Reason: pain) Qty: 14 0RF polyethylene glycol 3350 [Miralax] 17 gram/dose powder 4 g PO QDAY MDD 4g PRN (Reason: constipation) Qty: 510 0RF prednisone 50 mg tablet 50 mg PO QDAY Qty: 7 0RF alprazolam [Xanax] 0.5 mg tablet 0.5 mg PO BID PRN (Reason: anxiety) Qty: 20 0RF Referrals: Bella Lorenzo, GORDO [Primary Care Provider] - In 1 week Problem List Clinical Impression: Constipation Patient/Caregiver Discharge Instructions Education Materials: ED Constipation (Adult) Additional Instructions: GoLytely as prescribed. Follow-up with your doctor. Return if vomiting begins. Print Language: Citizen Of [place] Stand Alone Forms: Janet Award Info., Patient Portal Info Letter
[2025-07-21 22:32] VITALS: BP 120/76; PULSE 96; RESP 18; TEMP 36.8; O2SAT 100
== END 2025-07-21 22:34 | disposition home or self-care (01) ==
PROVIDERS: Physician Assistant; Emergency Provider Emergency Medicine; PCP Optometrist
DX: K59.00 Constipation, unspecified (principal)
CPT/HCPCS: 74018; 81001; 81025; 99283; Q0162; A9270